=== PATIENT | female | born 2000 | race Two or more races ===

== ENCOUNTER 2020-01-23 13:09 | Emergency (ER) | payer OTHER ==
[~2020-01-23] VITALS: Ht 152.4 cm; Wt 87.0 kg
[2020-01-23 15:21] VITALS: BP 107/64
== END 2020-01-23 16:45 | disposition left against medical advice (07) ==
LOC: ER 13:58
DX: Z53.21 Procedure and treatment not carried out due to patient leaving prior to being seen by health care provider (principal)

== ENCOUNTER 2020-01-23 17:52 | Emergency (ER) | payer OTHER ==
[~2020-01-23] VITALS: Ht 160 cm; Wt 73.0 kg
[2020-01-23] MEDS ORDERED: ONDANSETRON HCL 4MG/2ML INJ IV STA (18:41)
[2020-01-23] MEDS ORDERED: SODIUM CHLORIDE 0.9% 1,000 ML IV ONE (18:45)
[2020-01-23 19:56] LABS: BASOPHILS % 0.6 % (0.0-2.0); EOSINOPHILS % 2.6 % (0.0-5.0); HEMATOCRIT. 36.1 % (36.0-48.0); HEMOGLOBIN. 12.2 g/dL (12.0-16.0); LYMPHOCYTES % 25.7 % (20.0-50.0); MEAN CORPUSCULAR VOLUME 82.9 fL (81.0-99.0); MEAN PLATELET VOLUME 7.4 fl (7.4-10.4); MONOCYTES % 7.2 % (2.0-8.0); NEUTROPHILS % 63.9 % (40.0-76.0); PLATELET 316 x1000/uL (130-400); RED BLOOD CELL COUNT 4.36 mill/uL (4.2-5.4)
[2020-01-23 20:04] LABS: CHLORIDE 106 mEq/L (98-107)
[2020-01-23 20:12] LABS: HCG SCREEN NEGATIVE
[2020-01-23 21:21] LABS: CLARITY URINE CLEAR (CLEAR); COLOR URINE YELLOW (YELLOW); KETONES URINE NEGATIVE (NEGATIVE); LEUKOCYTE ESTERASE URINE TRACE (NEGATIVE); NITRITE URINE NEGATIVE (NEGATIVE); OCCULT BLOOD URINE NEGATIVE (NEGATIVE); PH URINE 7.5 (4.5-8.0); PROTEIN URINE NEGATIVE (NEGATIVE); SPECIFIC GRAVITY URINE 1.003 (1.005-1.030)
[2020-01-23 22:46] VITALS: BP 126/76
== END 2020-01-23 22:52 | disposition home or self-care (01) ==
LOC: ER 17:52
DX: R11.2 Nausea with vomiting, unspecified (principal); N39.0 Urinary tract infection, site not specified; U07.1 COVID-19; R05 Cough; J45.909 Unspecified asthma, uncomplicated
CPT/HCPCS: 36415; 71045; 80053; 81003; 81025; 83690; 84703; 85025; 87635; 93005; 96361; 96374; 99285; C9803; J2405; J7030